=== PATIENT | male | born 1965 | race Caucasian/White ===

== ENCOUNTER 2021-12-16 14:38 | Emergency (ER) | payer BC ==
[~2021-12-16] VITALS: Ht 175.3 cm; Wt 93.0 kg
[2021-12-16 14:50] VITALS: BP 136/91
[2021-12-16] MEDS ORDERED: METO-385 PO (14:58)
[2021-12-16] MEDS ORDERED: BENA5TAB40 PO (14:58)
[2021-12-16] MEDS ORDERED: METOPROLOL SUCCINATE 50MG ER TABLET PO STA (16:30)
== END 2021-12-16 17:35 | disposition home or self-care (01) ==
LOC: ER 14:55
DX: I10 Essential (primary) hypertension (principal); Z98.890 Other specified postprocedural states
CPT/HCPCS: 93005; 99283